=== PATIENT | female | born 1985 | race Caucasian/White ===

== ENCOUNTER 2022-11-21 08:45 | Outpatient (CLI) | payer BC, SELFPAY | END 2022-11-21 08:46 | disposition home or self-care (01) | PROVIDERS: PCP Physician Assistant Medical; Visit Provider Surgery | DX: R19.8 Other specified symptoms and signs involving the digestive system and abdomen (principal); K57.10 Diverticulosis of small intestine without perforation or abscess without bleeding | CPT/HCPCS: 43239; 88305; J2250; J3010 ==

== ENCOUNTER 2022-11-29 09:08 | Outpatient (CLI) | payer BC, SELFPAY ==
--- NOTE | 2022-11-29 09:15 | CRLHL7_ITS ---
For Patients: As a result of the Century Cures Act, medical imaging exams and procedure reports are released immediately into your electronic medical record. You may view this report before your referring provider. If you have questions, please contact your health care provider. Technique: Double-contrast upper GI performed after the uneventful administration of effervescent crystals and thick barium followed by thin barium. Fluoroscopy time 2 minutes 11 seconds. Indication: NON-BLEEDING DUODENAL DIVERTICULUM Comparison: None. Findings: Swallowing mechanism: Normal. Esophageal motility: Normal. Gastroesophageal reflux: None. Hernia: None. Esophagus, stomach and duodenal bulb mucosa: Normal esophageal and gastric mucosa. There is a duodenal diverticulum measuring 3.0 cm arising from the medial aspect of the 2nd portion without ulceration. Impression: 3 cm duodenal diverticulum. Remainder normal. Dictated by Jeff Estevez MD @ 11/29/2022 10:36:16 AM (Electronically Signed)
== END 2022-11-29 09:09 | disposition home or self-care (01) ==
LOC: RAD 09:08
PROVIDERS: PCP Physician Assistant Medical; Visit Provider Surgery
DX: K57.10 Diverticulosis of small intestine without perforation or abscess without bleeding (principal)
CPT/HCPCS: 74246

== ENCOUNTER 2023-06-13 08:09 | Outpatient (CLI) | payer BC, SELFPAY | END 2023-06-13 08:10 | disposition home or self-care (01) | PROVIDERS: PCP Physician Assistant Medical; Visit Provider Physician Assistant | DX: Z13.6 Encounter for screening for cardiovascular disorders (principal); Z13.1 Encounter for screening for diabetes mellitus | CPT/HCPCS: 80061; 82947 ==

== ENCOUNTER 2023-10-17 14:34 | Outpatient (CLI) | payer BC, SELFPAY ==
--- NOTE | 2023-10-17 14:40 | CRLHL7_ITS ---
For Patients: As a result of the Century Cures Act, medical imaging exams and procedure reports are released immediately into your electronic medical record. You may view this report before your referring provider. If you have questions, please contact your health care provider. BILATERAL SCREENING MAMMOGRAM WITH COMPUTER-AIDED DETECTION AND TOMOSYNTHESIS TECHNIQUE: CC, MLO and Implant displaced views were obtained. These mammographic images have been obtained using full-field digital technique. These mammographic images were interpreted with the benefit of computer-aided detection. Breast Tomosynthesis was used in this interpretation. COMPARISON FILM: Baseline. FINDINGS: The breasts are heterogeneously dense, which may obscure small masses IMPRESSION: There is no radiographic evidence for malignancy. ASSESSMENT: BI-RADS Category 2: Benign RECOMMENDATION: Routine screening mammogram in 1 year. A lay language report of this examination will be provided to the patient. Jeff Estevez M.D. Diagnostic Radiologist [email or web address] PADMINI/Dictated by: Jeff Estevez MD @ 10/21/2023 11:16:00 AM (Electronically Signed)
== END 2023-10-17 14:35 | disposition home or self-care (01) ==
LOC: MAMMO 14:34
PROVIDERS: PCP Physician Assistant Medical; Visit Provider Physician Assistant
DX: Z12.31 Encounter for screening mammogram for malignant neoplasm of breast (principal); R92.2 Inconclusive mammogram
CPT/HCPCS: 77063; 77067

== ENCOUNTER 2024-07-08 09:10 | Outpatient (CLI) | payer BC, SELFPAY ==
--- OUTSIDE RECORDS SUMMARY | 2024-07-08 09:18 | XMS_ITS | Continuity of Care Document ---
Author Name [facility] Organization [facility] Care Team Providers Care Search Engine Optimizer Name Role Phone [facility] Unavailable Unavailable Allergies, Adverse Reactions, Alerts Combined list of allergies from Department of Defense and Veterans Affairs facilities. It does not include entries that were removed or entered in error. Substance Category Reaction Severity Reaction type Status Date Reported Comments Source CIPRO (CIPROFLOXAC IN) Drug allergy (disorder) Anaphylaxis active 8 [facility] ciprofloxaci n Propensity to adverse reactions to substance Anaphylaxis Active 8 [facility] penicillins Propensity to adverse reactions to substance Unknown Active 1 [facility] PENICILLINS {Cla } Drug allergy (disorder) Unknown active 1 [place] [address] Immunizations Combined list of available immunizations from the Department of Defense and Veterans Affairs facilities. Immunization Series Date Given Administered By Site Reaction Lot Number CVX Code Drug Photo Cartographer Status Comments Source influenza, seasonal, injectable 2020 TRANSCR IBED 141 GlaxoSmithKli ne complet ed influenza , seasonal, injectabl e 07/03/21 Given Ambulat ory Pharmac y Influenza, seasonal, injectable 1 2020 141 [facility] ([place]) complet ed Influenza , seasonal, injectabl e [facility] SARS-CoV-2 (COVID-19) Ad26 vaccine, rec 2020 [id number] complet ed SARS-CoV- 2 (COVID-19 ) Ad26 vaccine, rec 06/01/21 Given Ambulat ory Pharmac y SARS-COV-2 (COVID-19) vaccine, vector non-replicati ng, recombinant spike protein-Ad26, preservative free, 0.5 mL 1 2020 [id number] 212 Lilly (IOANAN) comple t ed SARS-COV- 2 (COVID-19 ) vaccine, vector non-repli cating, recombina nt spike protein-A d26, preservat keerthi free, 0.5 mL DoD vaccinia (smallpox) vaccine 0 2020 75 () Not Given vaccinia (smallpox ) vaccine DoD SARS-COV-2 (COVID-19) vaccine, mRNA, spike protein, LNP, preservative free, 100 mcg or 50 mcg dose 0 2020 207 () Not Given SARS-COV- 2 (COVID-19 ) vaccine, mRNA, spike protein, LNP, preservat keerthi free, 100 mcg or 50 mcg dose DoD influenza, seasonal, injectable 2019 [id number] 141 complet ed influenza , seasonal, injectabl e 07/30/20 Given Ambulat ory Pharmac y Influenza, seasonal, injectable 1 2019 [id number] 141 Transcribed (TRS) complet ed Influenza , seasonal, injectabl e DoD influenza, injectable, quadrivalent- pf 2018 [id number] 150 Seqirus complet ed influenza , injectabl e, quadrival ent-pf 08/01/19 Given Ambulat ory Pharmac y Influenza, injectable, quadrivalent, preservative free 18 2018 [id number] 150 Seqirus (SEQ) complet ed Influenza , injectabl e, quadrival ent, preservat keerthi free DoD influenza, injectable, quadrivalent- pf 2017 [id number] 150 Seqirus complet ed influenza , injectabl e, quadrival ent-pf 06/27/18 Given Ambulat ory Pharmac y Influenza, injectable, quadrivalent, preservative free 1 2017 [id number] 150 Seqirus (SEQ) comple t ed Influenza , injectabl e, quadrival ent, preservat keerthi free DoD measles, mumps and rubella virus vaccine 0 2017 03 () Not Given measles, mumps and rubella virus vaccine DoD measles virus vaccine 0 2017 05 () Not Given measles virus vaccine DoD rubella virus vaccine 0 2017 06 () Not Given rubella virus vaccine DoD mumps virus vaccine 0 2017 07 () Not Given mumps virus vaccine DoD varicella virus vaccine 0 2017 21 () Not Given varicella virus vaccine DoD hepatitis B vaccine, unspecified formulation 0 2017 45 () Not Given hepatitis B vaccine, unspecifi ed formulati on DoD hepatitis A vaccine, adult dosage 0 2017 52 () Not Given hepatitis A vaccine, adult dosage DoD meningococcal A,C,Y,W-135 (MCV4P) 2017 [id number] 114 sanofi pasteur complet ed meningoco ccal A,C,Y,W-1 35 (MCV4P) 10/22/17 Given Ambulat ory Pharmac y meningococcal polysaccharid e (groups A, C, Y and W-135) diphtheria toxoid conjugate vaccine (MCV4P) 1 2017 [id number] 114 Sanofi Pasteur (PMC) complet ed meningoco ccal polysacch aride (groups A, C, Y and W-135) diphtheri a toxoid conjugate vaccine (MCV4P) DoD influenza, injectable, quadrivalent 2016 [id number] 158 [facility] influenza , injectabl e, quadrival ent 08/03/17 Given Ambulat ory Pharmac y influenza, injectable, quadrivalent, contains preservative 1 2016 [id number] 158 [employer] ([place]B) complet ed influenza , injectabl e, quadrival ent, contains preservat keerthi DoD influenza, seasonal, injectable-pf 2015 [id number] 140 Seqirus complet ed influenza , seasonal, injectabl e-pf 06/30/16 Given Ambulat ory Pharmac y Influenza, seasonal, injectable, preservative free 1 2015 [id number] 140 Seqirus (SEQ) comple t ed Influenza , seasonal, injectabl e, preservat keerthi free DoD influenza, seasonal, injectable-pf 2014 [id number] 140 CSL Behring complet ed influenza , seasonal, injectabl e-pf 07/08/15 Given Ambulat ory Pharmac y Influenza, seasonal, injectable, preservative free 1 2014 [id number] 140 [employer] (CSL) complet ed Influenza , seasonal, injectabl e, preservat keerthi free DoD influenza, seasonal, injectable 2013 [id number] 141 Novartis Pharmaceutica complet ed influenza , seasonal, injectabl e 07/06/14 Given Ambulat ory Pharmac y Influenza, seasonal, injectable 1 2013 [id number] 141 Novartis Pharmaceutica [place]. (NOV) complet ed Influenza , seasonal, injectabl e DoD influenza, seasonal, injectable-pf 2012 TRANSCR IBED 140 complet ed influenza , seasonal, injectabl e-pf 08/17/13 Given Ambulat ory Pharmac y Influenza, seasonal, injectable, preservative free 1 2012 140 Transcribed (TRS) complet ed Influenza , seasonal, injectabl e, preservat keerthi free DoD influenza, seasonal, injectable 2011 [id number] 141 complet ed influenza , seasonal, injectabl e 08/14/12 Given Ambulat ory Pharmac y Influenza, seasonal, injectable 1 2011 [id number] 141 Transcribed (TRS) complet ed Influenza , seasonal, injectabl e DoD tetanus, diphtheria, acellular pertu is 2011 [id number] 115 sanofi pasteur complet ed tetanus, diphtheri a, acellular pertussis 05/01/12 Given Ambulat ory Pharmac y tetanus toxoid, reduced diphtheria toxoid, and acellular pertu is vaccine, adsorbed 0 2011 [id number] 115 Sanofi Pasteur (PMC) complet ed tetanus toxoid, reduced diphtheri a toxoid, and acellular pertussis vaccine, adsorbed DoD tuberculin purified protein derivative 2011 [id number] 96 sanofi pasteur complet ed tuberculi n purified protein derivativ e 10/04/11 Given Ambulat ory Pharmac y influenza, seasonal, injectable 2011 [id number] 141 sanofi pasteur complet ed influenza , seasonal, injectabl e 10/04/11 Given Ambulat ory Pharmac y Influenza, seasonal, injectable 10 2011 [id number] 141 Sanofi Pasteur (PMC) complet ed Influenza , seasonal, injectabl e DoD influenza virus vaccine,split 2009 [id number] 15 sanofi pasteur complet ed influenza virus vaccine,s plit 08/03/10 Given Ambulat ory Pharmac y influenza virus vaccine, split virus (incl. purified surface antigen)-reti red CODE 1 2009 [id number] 15 Sanofi Pasteur (PMC) complet ed influenza virus vaccine, split virus (incl. purified surface antigen)- retired CODE DoD anthrax vaccine 2009 [id number] 24 Emergent Bios[employer] complet ed anthrax vaccine 05/11/10 Given Ambulat ory Pharmac y anthrax vaccine 2 2009 [id number] 24 [employer] Landy (MIP) complet ed anthrax vaccine DoD vaccinia (smallpox) vaccine 0 2009 75 () Not Given vaccinia (smallpox ) vaccine DoD anthrax vaccine 2009 [id number] [employer] complet ed anthrax vaccine 02/24/10 Given Ambulat ory Pharmac y anthrax vaccine 1 2009 [id number] [employer] Land[employer] (MIP) complet ed anthrax vaccine DoD Novel influenza-H1N 1-09, injectable 2009 [id number] 127 Novartis Pharmaceutica ls complet ed Novel influenza -J5S5-61, injectabl e 10/07/09 Given Ambulat ory Pharmac y Novel influenza-H1N 1-09, injectable 1 2009 [id number] 127 Novartis Pharmaceutica l [place]ell. (NOV) complet ed Novel influenza -W0K8-75, injectabl e DoD influenza virus vaccine, live 2008 [id number] 111 Medimmune Inc comple t ed influenza virus vaccine, live 08/26/09 Given Ambulat ory Pharmac y influenza virus vaccine, live, attenuated, for intranasal use 1 2008 [id number] 111 [employer] (MED) complet ed influenza virus vaccine, live, attenuate d, for intranasa l use DoD typhoid Vi capsular polysaccharid e vac 2008 [id number] 101 sanofi pasteur complet ed typhoid Vi capsular polysacch aride vac 12/30/08 Given Ambulat ory Pharmac y typhoid Vi capsular polysaccharid e vaccine 1 2008 [id number] 101 Sanofi Pasteur ([facility]) complet ed typhoid Vi capsular polysacch aride vaccine DoD influenza virus vaccine, live 2007 [id number] 111 [employer] Inc comple t ed influenza virus vaccine, live 07/30/08 Given Ambulat ory Pharmac y influenza virus vaccine, live, attenuated, for intranasal use 1 2007 [id number] 111 [employer] Inc. (MED) complet ed influenza virus vaccine, live, attenuate d, for intranasa l use DoD influenza virus vaccine, live 2006 [id number] 111 [employer] Inc comple t ed influenza virus vaccine, live 08/29/07 Given Ambulat ory Pharmac y influenza virus vaccine, live, attenuated, for intranasal use 1 2006 [id number] 111 Sente Inc[employer] Inc. (MED) complet ed influenza virus vaccine, live, attenuate d, for intranasa l use DoD typhoid vaccine, parenteral 2006 [id number] 41 sanofi pasteur complet ed typhoid vaccine, parentera l 11/01/06 Given Ambulat ory Pharmac y typhoid vaccine, parenteral, other than acetone-kille d, dried 1 2006 [id number] 41 Sanofi Pasteur ([facility]) complet ed typhoid vaccine, parentera l, other than acetone-k illed, dried DoD influenza virus vaccine,split 2005 [id number] 15 sanofi pasteur complet ed influenza virus vaccine,s plit 08/24/06 Given Ambulat ory Pharmac y influenza virus vaccine, split virus (incl. purified surface antigen)-reti red CODE 1 2005 [id number] 15 Sanofi Pasteur ([facility]) complet ed influenza virus vaccine, split virus (incl. purified surface antigen)- retired CODE DoD influenza virus vaccine,split 2004 [id number] 15 sanofi pasteur complet ed influenza virus vaccine,s plit 08/04/05 Given Ambulat ory Pharmac y influenza virus vaccine, split virus (incl. purified surface antigen)-reti red CODE 1 2004 [id number] 15 Sanofi Pasteur ([facility]) complet ed influenza virus vaccine, split virus (incl. purified surface antigen)- retired CODE DoD typhoid vaccine, parenteral 2004 [id number] 41 sanofi pasteur complet ed typhoid vaccine, parentera l 10/07/04 Given Ambulat ory Pharmac y influenza virus vaccine,split 2004 [id number] 15 sanofi pasteur complet ed influenza virus vaccine,s plit 10/07/04 Given Ambulat ory Pharmac y influenza virus vaccine, split virus (incl. purified surface antigen)-reti red CODE 0 2004 [id number] 15 Sanofi Pasteur ([facility]) complet ed influenza virus vaccine, split virus (incl. purified surface antigen)- retired CODE DoD typhoid vaccine, parenteral, other than acetone-kille d, dried 0 2004 [id number] 41 Sanofi Pasteur ([facility]) complet ed typhoid vaccine, parentera l, other than acetone-k illed, dried DoD tuberculin purified protein derivative 2002 [id number] complet ed tuberculi n purified protein derivativ e 07/27/03 Given Ambulat ory Pharmac y influenza virus vaccine, whole virus 2002 [id number] 16 sanofi pasteur complet ed influenza virus vaccine, whole virus 07/16/03 Given Ambulat ory Pharmac y influenza virus vaccine, whole virus 0 2002 [id number] 16 Sanofi Pasteur (PMC) complet ed influenza virus vaccine, whole virus DoD hepatitis A adult vaccine 2002 [id number] 52 Merck & Company Inc complet ed hepatitis A adult vaccine 03/05/03 Given Ambulat ory Pharmac y hepatitis A vaccine, adult dosage 2 2002 [id number] 52 Merck (MSD) complet ed hepatitis A vaccine, adult dosage DoD typhoid Vi capsular polysaccharid e vac 2001 [id number] 101 sanofi pasteur complet ed typhoid Vi capsular polysacch aride vac 08/28/02 Given Ambulat ory Pharmac y yellow fever vaccine 2001 [id number] 37 sanofi pasteur complet ed yellow fever vaccine 08/28/02 Given Ambulat ory Pharmac y yellow fever vaccine 0 2001 [id number] 37 Sanofi Pasteur (PMC) complet ed yellow fever vaccine DoD typhoid Vi capsular polysaccharid e vaccine 0 2001 [id number] 101 Sanofi Pasteur (PMC) complet ed typhoid Vi capsular polysacch aride vaccine DoD tuberculin purified protein derivative 2001 [id number] 96 sanofi pasteur complet ed tuberculi n purified protein derivativ e 07/14/02 Given Ambulat ory Pharmac y influenza virus vaccine, whole virus 2001 [id number] 16 sanofi pasteur complet ed influenza virus vaccine, whole virus 06/19/02 Given Ambulat ory Pharmac y influenza virus vaccine, whole virus 0 2001 [id number] 16 Sanofi Pasteur (PMC) complet ed influenza virus vaccine, whole virus DoD hepatitis A adult vaccine 2001 [id number] 52 GlaxoSmithKli ne complet ed hepatitis A adult vaccine 05/21/02 Given Ambulat ory Pharmac y measles, mumps and rubella virus vaccine 0 2001 03 () Not Given measles, mumps and rubella virus vaccine DoD varicella virus vaccine 1 2001 21 () Not Given varicella virus vaccine DoD hepatitis B vaccine, adult dosage 1 2001 43 () Not Given hepatitis B vaccine, adult dosage DoD hepatitis A vaccine, adult dosage 1 2001 [id number] 52 SmithKline (SKB) complet ed hepatitis A vaccine, adult dosage DoD tuberculin purified protein derivative 2001 [id number] 96 sanofi pasteur complet ed tuberculi n purified protein derivativ e 05/14/02 Given Ambulat ory Pharmac y tetanus-dipht h toxoids (Td) adult/adol 2001 [id number] 09 sanofi pasteur complet ed tetanus-d iphth toxoids (Td) adult/ado l 05/14/02 Given Ambulat ory Pharmac y meningococcal polysaccharid e (MPSV4) 2001 [id number] 32 sanofi pasteur complet ed meningoco ccal polysacch aride (MPSV4) 05/14/02 Given Ambulat ory Pharmac y poliovirus vaccine, inactivated 2001 [id number] 10 sanofi pasteur complet ed polioviru s vaccine, inactivat ed 05/14/02 Given Ambulat ory Pharmac y tetanus and diphtheria toxoids, adsorbed, preservative free, for adult use (2 Lf of tetanus toxoid and 2 Lf of diphtheria toxoid) 0 2001 [id number] 09 Sanofi Pasteur (PMC) complet ed tetanus and diphtheri a toxoids, adsorbed, preservat keerthi free, for adult use (2 Lf of tetanus toxoid and 2 Lf of diphtheri a toxoid) DoD poliovirus vaccine, inactivated 0 2001 [id number] 10 Sanofi Pasteur (PMC) complet ed polioviru s vaccine, inactivat ed DoD meningococcal polysaccharid e vaccine (MPSV4) 0 2001 [id number] 32 Sanofi Pasteur (PMC) complet ed meningoco ccal polysacch aride vaccine (MPSV4) DoD Results Combined list of recent chemistry, hematology and other laboratory results from Department of Defense and Veterans Affairs, ranging from 15 months to all on record, depending upon the facility. Order Name Results Value Reference Range Date Interpretation Specimen Comments Source Infectio us Disease HIV-1/O/2 Non-Reac tive 1 (12/21/23 1:46 PM) 12/20 N Interpretiv e Data: INTERPRETAT ION: This method is a screening procedure for the detection of HIV p24 Antigen and Antibodies to HIV-1, including Group O, and/or HIV-2. NON-REACTIV E: HIV-1 antigen and HIV-1 / HIV-2 antibodies were not detected. No laboratory evidence of HIV infection. A negative test result does not exclude the possibility of exposure to or infection with HIV. HIV antibodies and/or p24 antigen may be undetectabl e in some stages of the infection and in some clinical conditions. If acute HIV infection is suspected, consider submitting another specimen to a reference laboratory for HIV-1 RNA. SCREEN REACTIVE - CONFIRMATIO N TO FOLLOW: Possible presence of HIV-1antibo dies, HIV-2 antibodies and/or HIV-1 p24 antigen. Specimen will reflex to the confirmatio n testing that fulfills the Center for Disease Control and Prevention' s HIV diagnostic algorithm. Refer to [facility] Lab Guide for additional information : [email or web address]/ [email or web address] x Testing performed by Prashanth cardozo. [facility] Taracella anam Sendouts Repository Sample Received (12/21/23 1:46 PM) 12/20 N [facility] Vital Signs Combined list of inpatient and outpatient Vital Signs from Department of Defense and Veterans Affairs, ranging from 12 months to all on record, depending upon the facility. Vital Sign Value Date Comments Source No data available for this section Ambulatory Pharmacy Encounters Combined list of: 1) Encounters from Department of Veterans Affairs facilities going back up to thelast 18 months. 2) Encounters from the Department of Defense facilities going back up to 280 months. Location Location Details Encounter Type Encounter Number Reason For Visit Attending Provider ADM Date DC Date Status Disposition Source [facility]) OUTPATIENT [id number] Notes Entered by: JEROMY CÁRDENAS 16 Oct 2017 0522 ------- ------- ------- ------- -- right leg pain JEROMY PLEITEZ 10/16 Released with Work/Duty Limitations [facility]) [facility]) OUTPATIENT [id number] Notes Entered by: XENIA COSBY 28 Oct 2017 1243 ------- ------- ------- ------- -- heart burn (TFOT 18-04) VANE REESE 10/28 Released w/o Limitations [facility]) [place] [address](AFN G [address]) OUTPATIENT [id number] Notes Entered by: YOLIE GRISSOM 23 Dec 2017 0959 ------- ------- ------- ------- -- Triserv ice KARLA FERNANDEZ 12/23 Released w/o Limitations [facility] [place] [address](A FNG [address]) [facility]) OUTPATIENT [id number] Notes Entered by: TRINITY MAO 29 Jan 20182003 ------- ------- ------- ------- -- referen juliane audiogr TRINITY MAO 01/30 Released w/o Limitations [facility] ) [place] [address](AFN G [address]) OUTPATIENT [id number] Notes Entered by: [place] 21 Dec 2019 0818 ------- ------- ------- ------- -- Tri-Ser KARLA Laureano 12/20 Released w/o Limitations [facility] [place] [address](A FNG [address]) [place] [address](AFN G [address]) OUTPATIENT [id number] Notes Entered by: [place] 10 Dec 2021 1142 ------- ------- ------- ------- -- Tri-Ser DAMIR Menendez 12/10 Released w/o Limitations [facility] [place] [address](A FNG [address]) [id number] MDG Outside Documentat ion Only [id number] 10/08 Discharge Disposition: Home or Self Care [id number] [id number] MDG [id number] [facility] Outpatient [id number] ALYSSA PEREZGEMER 12/20 Discharge Disposition: Home or Self Care [id number] [id number] [facility] Procedures Combined list of: 1) Procedures from Department of Veterans Affairs facilities going back up to thelast 18 months, not all [place] non-surgical procedures are included; 2) All procedures from the Department of Defense facilities. Procedure Procedure Type Code Date Perfomer Comments Sourc e Threshold Audiogram (Pure Tone) Automated Threshold Audiogram (Pure Tone) Automated 0208T 01/30/2018 TRINITY MAO [facility] PURE TONE AUDIOMETRY (THRESHOLD), AUTOMATED; AIR ONLY 01/29/2018 [facility] No data available for this section Ambulatory Pharmacy Social History Combined list of available smoking, tobacco, and other social history from Department of Defense and Veterans Affairs facilities. Social History Type Response Date Comment Sourc e Female 12/20/2021 Ambulatory Pha rmacy This section is an empty soc ial history section. DoD Sexual Orientation [facility]acy Gender identity [facility] Assessment and Plan Combined list of future care activities from Department of Defense and Veterans Affairs facilities (e.g., assessment and plan notes, appointments, orders, and referrals). Additional future care activities may be listed in the Plan of Care section. Result Assessment and Plan Date Source Assessment and Plan No data available for this section 07/08/2024 Ambulatory Pharmacy Functional Status Combined list of recent functional and cognitive assessments recorded at Department of Defense and [facility] ([place] Functional Piatt Measurement (FIM) Scale: 1 = Total Assistance (Subject = 0% +), 2 = Maximal Assistance (Subject = 25% +), 3 = Moderate Assistance (Subject = 50% +), 4 = Minimal Assistance (Subject = 75% +), 5 = Supervision, 6 = Modified Piatt (Device), 7 = Complete Piatt (Timely, Safely). Assessment Date/Time Source Assessment Type Assessment Skill Assessment Score Assessment Details No data available for this section
--- OUTSIDE RECORDS SUMMARY | 2024-07-08 09:19 | XMS_ITS | Clinical Summary ---
Author Organization [facility] Address [place], [place] [address] Care Team Providers Care Vp Digital Marketing Name Role Phone Clinic, No Pcp Or Primary Care Provider Unavaila ble Allergies Active Allergy Reactions Criticality Noted Date Comments Ciprofloxacin Rash 07/03/2016 Medications Medication Sig Dispensed Refills Start Date End Date Status ACETAMINOPHEN 500 MG TAB take 2 tablets (1,000 mg) by oral route every 6 hours as needed 0 10/16/2007 Active Active Problems Problem Noted Date Diagnosed Date , normal subsequent 04/30/2014 Pre-syncope 04/30/2014 Overview (04/30/2014): Nearly fainted while on assignment Immunizations Name Administration Dates Next Due DTaP 01/26/1986, 4,1983,1983,1983 Inactivated Polio Vaccine 01/26/1986,1983, 1983,1983 MMR 05/11/1996,12/21/1984 Td (Age >=7 Years) 01/31/2010 Tdap 08/14/2003 Social History Tobacco Use Types Packs/Day Years Used Date Smoking Tobacco: Never Smokeless Tobacco: Never Alcohol Use Standard Drinks/Week Comments No 0 (1 standard drink = 0.6 oz pur e alcohol) Sex and Gender Information Value Date Recorded Sex Assigned at Not on file Gender Identity Not on file Sexual Orientation Not on file Obstetrics History Para Term AB IAB SAB Ectopic Multiple Livin g Live Births 2 1 1 0 0 0 0 0 0 1 Date Outcome GA Total Labor Labor/2nd/3rd Weight Sex Type Anes PTL Dolores A1 A5 Name Clin Term Last Filed Vital Signs Vital Sign Reading Time Taken Comments Blood Pressure 110/60 07/03/2016 3:35 PM CDT Pulse 70 07/03/2016 3:35 PM CDT Temperature 36.8 ??C (98.3 ??F) 07/03/2016 3:35 PM CD T Respiratory Rate 16 04/30/2014 9:15 AM CDT Oxygen Saturation 99% 07/03/2016 3:35 PM CDT Inhaled Oxygen Concentration - - Weight 66.7 kg (147 lb) 07/03/2016 3:35 PM CDT Height 175.3 cm (5' 9) 07/03/2016 3:35 PM CDT Body Mass Index 21.71 07/03/2016 3:35 PM CDT Plan of Treatment Health Maintenance Due Date Last Done Comments HIV for age 15-65 1998 Hepatitis C screening for age 18-79 2001 BMI (ht and wt on same day) for age 18+ 07/03/2017 07/03/2016 Depression screening for age 12+ 07/03/2017 07/03/2016 Tetanus booster 02/01/2020 01/31/2010, 08/14/2003 Pap test for age 21-65 10/21/2021 10/21/2018, 2018 COVID-19 vaccine series (2023- season) 2024 Influenza for age 9-49 05/16/2024 6 (Completed outside of [facility]) Tdap Completed 08/14/2003 Pneumococcal series for age 6-64 Aged Out No longer eligible based on patient's age to complete this topic Procedures Procedure Name Priority Date/Time Associated Diagnosis Comments TELECINE OPERATOR THIN PREP PAP SCREEN IMAGED Routine 10/21/2018 6:09 PM DIRECTOR OF OPERATIONS SUPPORT from Last 3 Months or Most Recently Relevant to Health Maintenance Results * TELECINE OPERATOR THIN PREP PAP SCREEN IMAGED (10/21/2018 6:09 PM DIRECTOR OF OPERATIONS SUPPORT) Case Report Gynecologic Cytology Report ? Case: [id number] ? Authorizing Provider: ??Bianca Rondon NP ? Collected: ? 10/21/2018 1809 ? First Screen: ?Elida Sullivan ? Received: ?10/22/2018 1809 ? Specimen: ?TELECINE OPERATOR ThinPrep Vial Screening, Cervical/Vaginal ? 10/29/2018 9:55 AM [facility] INTERPRETATION/ RESULT NEGATIVE FOR INTRAEPITHELIAL LESION OR MALIGNANCY (NIL) (none) 10/29/2018 9:55 AM [facility] IMEN ADEQUACY Satisfactory for evaluation Endocervical component present 10/29/2018 9:55 AM [facility] HPV REQUEST HPV and PAP 10/29/2018 9:55 AM [facility] Date of LMP 09/29/2018 10/29/2018 9:55 AM [facility] Last Pap Date 03/25/2013 10/29/2018 9:55 AM [facility] Last Pap Result NIL 9 9:55 AM [facility] Automated Review Successful 10/29/2018 9:55 AM [facility] Comment:Specimen processed s uccessfully by automated web consultant device, ThinPrep Imaging System, [employer] ANCILLARY TESTING TELECINE OPERATOR HPV Ordered, Please see separate report 10/29/2018 9:55 AM [facility] Note The pap test is a screening technique, not a diagnostic procedure. ??It is used primarily to screen for squamous cancers and precursor lesions. ??Published studies have shown that it is subject to both false negative and false positive results. ??The pap test should not be used as the sole means to diagnose or exclude pre-malignant and malignant lesions. Cytology is screened and interpreted at [facility] - [address], [place] [address] and [facility] - [address]; [place] [address] and [facility] - [address]; [place] [address] and [facility] [address]; [place] [address] 10/29/2018 9:55 AM DIRECTOR OF OPERATIONS SUPPORT [facility] Other (Cervical/Vagina l) 10/21/2018 6:09 PM DIRECTOR OF OPERATIONS SUPPORT 10/22/2018 6:09 PM DIRECTOR OF OPERATIONS SUPPORT Bianca Rondon NP PATHOLOGY/CYTOLOGY [facility] [address] [place] [address], [place] from Last 3 Months or Most Recently Relevant to Health Maintenance Advance Directives * Full Code (Latest Code Status on File) Date Activated Date Inactivated Comments 04/30/2014 9:14 AM 04/30/2014 12:24 PM Care Teams Vp Digital Marketing Relationship Specialty Start Date End Date Clinic, No Pcp Or . PCP - General 07/03/16
[2024-07-10 05:34] LABS: HPV Source Cervix; HPV, High Risk by TMA Not Detected
== END 2024-07-08 09:11 | disposition home or self-care (01) ==
PROVIDERS: PCP Physician Assistant Medical; Visit Provider Physician Assistant
DX: Z01.419 Encounter for gynecological examination (general) (routine) without abnormal findings (principal); D22.9 Melanocytic nevi, unspecified; Z12.4 Encounter for screening for malignant neoplasm of cervix; Z13.6 Encounter for screening for cardiovascular disorders; Z13.1 Encounter for screening for diabetes mellitus
CPT/HCPCS: 80061; 82947; 87624; 87625; 88141; 88142

== ENCOUNTER 2024-09-29 13:41 | Outpatient (CLI) | payer BC, SELFPAY ==
--- NOTE | 2024-09-29 13:40 | CRLHL7_ITS ---
For Patients: As a result of the Century Cures Act, medical imaging exams and procedure reports are released immediately into your electronic medical record. You may view this report before your referring provider. If you have questions, please contact your health care provider. BILATERAL SCREENING MAMMOGRAM WITH COMPUTER-AIDED DETECTION AND TOMOSYNTHESIS TECHNIQUE: CC, MLO and Implant displaced views were obtained. These mammographic images have been obtained using full-field digital technique. These mammographic images were interpreted with the benefit of computer-aided detection. Breast Tomosynthesis was used in this interpretation. COMPARISON FILM: 10/17/23. FINDINGS: The breasts are heterogeneously dense, which may obscure small masses IMPRESSION: There is no radiographic evidence for malignancy. ASSESSMENT: BI-RADS Category 2: Benign RECOMMENDATION: Routine screening mammogram in 1 year. A lay language report of this examination will be provided to the patient. Jeff Estevez M.D. Diagnostic Radiologist [email or web address] Transcribed: 3:41 [email or web address] bobby/Dictated by: Jeff Estevez MD @ 09/30/2024 11:56:00 AM (Electronically Signed)
== END 2024-09-29 13:42 | disposition home or self-care (01) ==
LOC: MAMMO 13:41
PROVIDERS: PCP Physician Assistant Medical; Visit Provider Physician Assistant
DX: Z12.31 Encounter for screening mammogram for malignant neoplasm of breast (principal); R92.333 Mammographic heterogeneous density, bilateral breasts
CPT/HCPCS: 77063; 77067